=== PATIENT | female | born 1960 | race Caucasian/White ===

== ENCOUNTER 2018-03-17 06:53 | Inpatient (IN) | payer OTHER ==
[~2018-03-17] VITALS: Ht 170.2 cm; Wt 97.5 kg
--- NOTE | ~2018-03-17 | H ---
[address] [address] HISTORY AND PHYSICAL Name: VIRGINIA CASTANEDA Room: [address]#: [id number] Admission: 03/17/18 Attend Phys: Marquise Dixon DO Discharge: 03/19/18 Date of : 64 Report #: [id number] THIS REPORT FOR: //name// For History and Physical please refer to the handwritten note in the patient's medical record. By: [facility] GABINO /THERON
[~2018-03-17 06:53] MED LIST: LISINOPRIL10 MG PO; METFORMIN HCL500 MG PO; NABUMETONE 750750 M1 PO
[2018-03-17 07:24] LABS: HEMATOCRIT 45.9 % (37.0-47.0); HEMOGLOBIN 15.4 gm/dL (12.0-15.0); MCH 30.4 pg (26.0-34.0); MCHC 33.7 g/dL (28.0-37.0); MCV 90.2 fL (80.0-100.0); MPV 7.8 fl. (7.2-11.1); RBC 5.09 mil/uL (4.20-5.00); RDW-CV 12.9 % (10.5-14.5); WBC 7.8 thou/uL (4.0-11.0)
[2018-03-17 07:26] LABS: CALCIUM 8.7 mg/dL (8.5-10.1); POTASSIUM 3.7 mmol/L (3.5-5.1)
[2018-03-17 07:31] LABS: ALBUMIN 3.8 g/dL (3.4-5.0); TOTAL BILIRUBIN 1.3 mg/dL (<0.1-1.0); TOTAL PROTEIN 7.6 g/dL (6.4-8.2)
[2018-03-17 08:00] VITALS: BP 11/60
--- NOTE | 2018-03-17 11:09 | EKG ---
[place] [address] ELECTROCARDIOGRAM REPORT Name: VIRGINIA CASTANEDA Room: [place] [address] ADM IN .R.#: [id number] Admission: 03/17/18 Attend Phys: Marquise Dixon DO Discharge: Date of : 64 Report #: [id number] THIS REPORT FOR: //name// [facility] Test Date: 2018-03-17 Test Time: 07:38:28 Pat Name: VIRGINIA CASTANEDA Department: Room: [place] [address] Gender: F Transmitter Chief: : 1960 Requested By: Marquise Dixon Order Number: [id number] Reading MD: Stalin Arroyo Measurements Intervals [place] Rate: 63 P: 28 AK: 139 QRS: 53 QRSD: 85 T: 36 QT: 425 QTc: 436 Interpretive Statements Sinus rhythm No previous ECG available for comparison Electronically Signed On 03-17-2018 11:09:14 CDT by Stalin Arroyo [email or web address] <ELECTRONICALLY SIGNED> By: Stalin Arroyo MD, [facility] 03/17/18 1109 0738 0738 Stalin Arroyo MD, FACC /EPI
[2018-03-17 15:00] VITALS: BP 113/72
[2018-03-17 16:48] VITALS: BP 107/61
[2018-03-17 20:09] VITALS: BP 99/52
[2018-03-18 00:38] VITALS: BP 90/59
[2018-03-18 04:56] LABS: ABSOLUTE EOSINOPHILS 0.1 thou/uL (0.0-0.7); ABSOLUTE LYMPHOCYTES 1.6 thou/uL (0.8-5.3); ABSOLUTE MONOCYTES 0.9 thou/uL (0.0-1.2); ABSOLUTE NEUTROPHILS 6.4 thou/uL (1.6-8.1); BASOPHILS 0.3 %; EOSINOPHILS 1.6 %; HEMATOCRIT 37.7 % (37.0-47.0); LYMPHOCYTES 17.1 %; MCH 30.6 pg (26.0-34.0); MCHC 33.1 g/dL (28.0-37.0); MCV 92.4 fL (80.0-100.0); MONOCYTES 10.4 %; MPV 8.2 fl. (7.2-11.1); NUCLEATED RBCS 0 /100WBC; POLYS 70.6 %; RBC 4.07 mil/uL (4.20-5.00); RDW-CV 13.2 % (10.5-14.5); WBC 9.1 thou/uL (4.0-11.0)
[2018-03-18 04:57] VITALS: BP 80/48
[2018-03-18 05:40] LABS: HEMOGLOBIN 12.5 gm/dL (12.0-15.0); PLATELET COUNT* 231 thou/uL (150-400)
[2018-03-18 05:57] VITALS: BP 90/53
[2018-03-18 06:04] LABS: CREATININE 0.9 mg/dL (0.6-1.3); POTASSIUM 4.1 mmol/L (3.5-5.1)
[2018-03-18 07:50] VITALS: BP 108/57
[2018-03-18 16:00] VITALS: BP 97/64
[2018-03-18 20:40] VITALS: BP 99/64
[2018-03-19] VITALS: BP 102/50
[2018-03-19 04:00] VITALS: BP 113/76
[2018-03-19 07:30] VITALS: BP 111/73
[2018-03-19] MEDS ORDERED: NORCO 5-325 TA1 EACH PO (15:02)
[2018-03-19 15:06] VITALS: BP 111/73
[2018-03-19 19:39] VITALS: BP 111/73
--- NOTE | 2018-03-21 13:09 | PATH ---
[address] [address] PATHOLOGY RPT PROCEDURE Name: MONTSERRAT RICHARD Room: [address] IN M.R.#: [id number] Admission: 03/17/18 Date of : 64 Discharge: 03/19/18 Report #: [id number] Path Case #: [id number] L[facility] Accession Number: [id number] . 01 Material submitted: . SIGMOID COLON WITH DOUGHNUTS . 01 Clinician provided ICD-10: K57.32 . 01 Clinical history: . Diverticulitis of large intestine. . 02 Diagnosis: Sigmoid colon with donuts: - Segment of benign colon with marked diverticular disease including chronic diverticulitis and chronic and acute serositis. - Two benign colonic 'donuts'. (VIKTORIA:lisa; 03/20/2018) QMS/03/21/2018 . 02 Electronically signed: . Nilo Bustillo MD, Pathologist NPI- [id number] . 01 Gross description: . Received in formalin labeled "Montserrat Richard, sigmoid colon with donuts" is an unoriented segment of large bowel which measures 16.5 cm in length and 3.0 cm in diameter. The mucosal margins are closed with staple lines. There is an attached portion of mesenteric fat measuring 18.0 x 7.5 x 4.2 cm. The serosa is pink-eduardo and smooth with focal hemorrhagic areas. The specimen is opened to reveal pink-eduardo mucosa without masses or polyps identified. A strictured area is present, associated with the previously described serosal hemorrhage, which measures 5.0 cm in length and has a luminal diameter of 1.0 cm. The muscle wall in this area measures 0.5 cm in thickness. Upon sectioning, multiple diverticula are identified diffusely throughout the specimen, ranging from 0.5-1.3 cm in greatest dimension. No fecaliths or perforations are identified within the diverticula. Wood Pile Driver Operator sections of the specimen are submitted as follows: A1-A2 mucosal margins A3-A6 shared services representative diverticula ([facility]; 03/19/2018) . After initial microscopic examination, the specimen is re-examined. Also received within the specimen container are two anastomotic rings of light eduardo to light brown mucosa measuring 2.2 x 1.1 x 0.5 and 2.4 x 1.5 x 1.0 cm. Wood Pile Driver Operator sections [place] [address] PATHOLOGY RPT PROCEDURE Name: MONTSERRAT RICHARD Room: [address] IN [facility]#: [id number] Admission: 03/17/18 Date of : 64 Discharge: 03/19/18 Report #: [id number] Path Case #: [id number] cassette A7. (CAA; 03/20/2018) SYC/SYC . 02 Pathologist provided ICD-10: K57.32, K65.8 . 02 CPT . 665054 Specimen Comment: A courtesy copy of this report has been sent to Specimen Comment: [phone], . Specimen Comment: Report sent to / DR RODRIGUEZ Performed at: [address], [place], [place] [id number] MD Darrion Baeza MD Phone: [phone] Performed at: 02 [facility] [address], [place], [place] [id number] MD Nilo Bustillo MD Phone: [phone]
--- NOTE | 2018-03-26 10:40 | OP ---
[address] [address] OPERATIVE REPORT Name: VIRGINIA CASTANEDA Room: [address] IN M.R.#: [id number] Admission: 03/17/18 Attend Phys: Marquise Dixon DO Discharge: 03/19/18 Date of : 64 Report #: [id number] THIS REPORT FOR: //name// CC: Marquise Santamaria DO DATE OF SERVICE: 03/17/2018 REFERRING PHYSICIANS: Dr. Christel Santamaria and also Dr. Kevin Marti. PREOPERATIVE DIAGNOSIS: Recurrent sigmoid diverticulitis. POSTOPERATIVE DIAGNOSES: Recurrent sigmoid diverticulitis and large uterine fibroid tumors. PROCEDURE: Laparoscopic sigmoid colectomy with end-to-end colorectal anastomosis and takedown of the splenic flexure. SURGEON: Marquise Dixon DO LEHR OPERATOR: Roberto Quintanilla DO, PGY2, resident. SECOND EXHIBITS MANAGER: Darleen Cerda DO, PGY1, resident. ANESTHESIA: General endotracheal. ESTIMATED BLOOD LOSS: Less than 40 mL. COMPLICATIONS: None. INDICATIONS FOR PROCEDURE: This is a 58-year-old female who has had multiple bouts of diverticulitis including both inpatient and outpatient treatments. She underwent colonoscopy, which did show sigmoid diverticulitis and some narrowing was noted as well in the sigmoid region. DESCRIPTION OF PROCEDURE: After obtaining proper consents and discussing risks and complications with the patient, she was taken to the operating room, she was placed in the lithotomy position, administered general endotracheal anesthetic. She was then prepped and draped in the usual fashion. A Ribera catheter was placed. A timeout was performed. We confirmed the appropriate patient and procedure. Preoperative antibiotics had been given. SCDs were in place. All necessary equipment was within the operating room. We then made a midline supraumbilical skin incision with a #11 scalpel blade. This was carried down through the skin into the subcutaneous tissue [place] [address] OPERATIVE REPORT Name: TONYAVIRGINIA Veronica Room: [address]#: [id number] Admission: 03/17/18 Attend Phys: Marquise Dixon, Discharge: 03/19/18 Date of : 64 Report #: [id number] hemostasis. Once the fascia was encountered, it was incised along the midline, grasped and elevated with [facility] clamps and divided further. The peritoneum was then bluntly opened using a hemostat. A finger was placed inside the peritoneal cavity to assure there were no olvin-incisional adhesions. Next, 2-0 Vicryl sutures were placed in a erweyq-em-utuom fashion to secure the Monalisa trocar, which was then inserted and insufflation was begun. Once insufflation was complete, full visual inspection of the intraabdominal organs was performed. This immediately revealed a very large uterine fibroid. The sigmoid colon appeared to be thick walled and attached to the left pelvic sidewall. There were no other gross abnormalities. The liver appeared normal. The small bowel, which could be visualized appeared normal as well. We then inserted another 5 mm suprapubic trocar after placing the patient in Trendelenburg position. A 12 mm right lower quadrant trocar was placed and a 5 mm right upper quadrant trocar were placed. I was then able to take down the adhesions of the sigmoid colon along the left pelvic sidewall, all the way down to the peritoneal reflection using both blunt dissection as well as electrocautery. We then took down the white line of Toldt along the left pericolic gutter extending all the way up to the splenic flexure. I then began dissection on the medial aspect of the sigmoid colon. We elevated the colon. I identified the pedicle of the inferior mesenteric artery. We opened the mesentery around this and then used a LigaSure device to dissect out the inferior mesenteric artery and vein, which were divided using the LigaSure device. I was then able to open an avascular window in the mesentery. We were easily able to dissect distally until we were well below the area of concern and into an area that appeared to be normal bowel. I then also dissected more cephalad along the mesentery taking the mesentery until we were well above the area of inflammation and no evidence of any diverticula. At this point, we used an Endo-SATHISH 60 mm purple load on the Covidien stapler to divide the distal sigmoid colon at the peritoneal reflection. I did have to use another 45 mm staple load as well. We then wanted to assure that we had enough length to bring this down without any tension, so I took down the splenic flexure first using electrocautery along the splenocolic ligament and then using the LigaSure device as well. I also took down the gastrocolic omentum and entered the lesser sac, which allowed for easier dissection of the splenic flexure from the side of the transverse colon. Once we had enough length and we were well away from the colon during this dissection, we grasped the sigmoid colon at the staple line. A small laparotomy incision was made. We then inserted a wound protector and the colon was brought out and exteriorized. We identified the area that had been marked in the intraperitoneal portion of the procedure for the proximal resection margin. The LigaSure was used to dissect the mesentery all the way up to the colon in this area. We then used a TA 60 stapling device to divide the colon. Allis clamps were used to hold the colon open. Then, EEA sizers were inserted up to 31 mm. We elected to use a 31 mm EEA. The anvil was inserted into the proximal colon. The colon was then stapled. We then brought the spike out anterior through the tenia coli. We then dropped this back into the peritoneal cavity and reinsufflated the abdominal cavity. We bubble tested the rectal stump first with a rigid [address] [address] OPERATIVE REPORT Name: VIRGINIA CASTANEDA Room: [address] IN ..#: [id number] Admission: 03/17/18 Attend Phys: Marquise Dixon DO Discharge: 03/19/18 Date of : 64 Report #: [id number] sigmoidoscope. The EEA sizers were then inserted up to a 31 mm. The EEA stapler was then inserted and the spike opened anterior to the staple line. The anvil was then attached to the spike. The EEA was closed and fired. The anastomotic rings were checked and we found to have two good anastomotic rings. We then bubble tested the anastomosis as well using the rigid sigmoidoscope and found no evidence of any leak. I then placed a 15-[place] Octavio-Valero drain through the suprapubic incision. This was placed down next to the anastomosis. We assured that the small bowel was out from underneath the descending colon. The area was then copiously irrigated. We then removed the 12 mm right lower quadrant trocar and a PMI closure device was used to close the fascia with a 2-0 Vicryl suture. The remaining trocars were removed. The wound protector and all excess covering were removed. I then closed the supraumbilical fascia using a running #1 looped PDS suture. The subcutaneous tissues were injected with 0.5% Marcaine without epinephrine and then closed using 3-0 Vicryl suture. Skin incisions were all closed using 4-0 Monocryl subcuticular stitches. Sponge, needle and instrument counts were all correct at the end of the procedure. The patient tolerated the procedure well and was awakened in the operating room and transported to recovery room in stable condition. <ELECTRONICALLY SIGNED> By: Marquise Dixon DO 03/26/18 1040 1234 [id number] Dixon DO /nt
== END 2018-03-19 16:10 | disposition home or self-care (01) | DRG 331 ==
LOC: M.TBA 06:53 → M.PRE 09:04 → M.ORTHSURG 14:25
PROVIDERS: ADMIT Surgery
PROC: 0DTN4ZZ Resection of Sigmoid Colon, Percutaneous Endoscopic Approach (ICD-10-PCS; principal; 2018-03-17)
PROC: 0DBL4ZZ Excision of Transverse Colon, Percutaneous Endoscopic Approach (ICD-10-PCS; principal; 2018-03-17)
DX: K57.32 Diverticulitis of large intestine without perforation or abscess without bleeding (principal); D25.9 Leiomyoma of uterus, unspecified; I95.9 Hypotension, unspecified; E66.9 Obesity, unspecified; Z68.33 Body mass index [BMI] 33.0-33.9, adult

== ENCOUNTER → 2018-12-25 | Outpatient (CLI) | payer OTHER ==
[~2018-12-25] MED LIST changes: +NORCO 5-325 TA1 EACH PO
== END ==
LOC: M.MRI 13:48
DX: M47.813 Spondylosis without myelopathy or radiculopathy, cervicothoracic region (principal)

== ENCOUNTER → 2019-02-19 | Day surgery (SDC) | payer OTHER ==
[2019-02-19 10:38] LABS: HEMATOCRIT 45.8 % (37.0-47.0); HEMOGLOBIN 15.4 gm/dL (12.0-15.0); MCH 31.4 pg (26.0-34.0); MCHC 33.7 g/dL (28.0-37.0); MCV 93.2 fL (80.0-100.0); MPV 7.3 fl. (7.2-11.1); RBC 4.92 mil/uL (4.20-5.00); RDW-CV 12.9 % (10.5-14.5)
[2019-02-19 10:49] LABS: CALCIUM 9.2 mg/dL (8.5-10.1); CREATININE 0.9 mg/dL (0.6-1.3); POTASSIUM 4.4 mmol/L (3.5-5.1)
[2019-02-19 10:53] LABS: ALBUMIN 3.7 g/dL (3.4-5.0); TOTAL BILIRUBIN 0.7 mg/dL (<0.1-1.0); TOTAL PROTEIN 7.2 g/dL (6.4-8.2)
--- NOTE | 2019-02-19 17:18 | EKG ---
[place] [address] ELECTROCARDIOGRAM REPORT Name: VIRGINIA CASTANEDA Room: [facility]#: [id number] Admission: 02/19/19 Attend Phys: Han Ellis, Discharge: Date of : 64 Report #: [id number] THIS REPORT FOR: //name// [facility] Test Date: 2019-02-19 Test Time: 10:41:03 Pat Name: VIRGINIA CASTANEDA Department: Room: Gender: F Tape Recording Machine Operator: : 1960 Requested By: Han Ellis Order Number: [id number] Chela MD: Stalin Arroyo Measurements Intervals [place] Rate: 60 P: -20 CO: 144 QRS: 51 QRSD: 91 T: 38 QT: 421 QTc: 421 Interpretive Statements Sinus arrhythmia Low voltage, precordial leads Compared to ECG 03/17/2018 07:38:28 Low QRS voltage now present Electronically Signed On 02-19-2019 17:18:06 CDT by Stalin Arroyo [email or web address] <ELECTRONICALLY SIGNED> By: Stalin Arroyo MD, [facility] 02/19/19 1718 1041 1041 Stalin Arroyo MD, FACC /EPI
--- NOTE | 2019-02-21 16:49 | OP ---
[address] [address] OPERATIVE REPORT Name: VIRGINIA CASTANEDA Room: [facility]#: [id number] Admission: 02/19/19 Attend Phys: Han Ellis, Discharge: Date of : 64 Report #: [id number] THIS REPORT FOR: //name// CC: Christel Ellis DATE OF SERVICE: 02/19/2019 PREOPERATIVE DIAGNOSIS: Right carpal tunnel syndrome. POSTOPERATIVE DIAGNOSIS: Right carpal tunnel syndrome. OPERATION PERFORMED: Release of right carpal tunnel. SURGEON: Han Ellis DO. SALESFORCE DEVELOPER: Tyler Massey. SECOND SALESFORCE DEVELOPER: CHRIS Davila. ANESTHESIA: General. GROSS PATHOLOGY: There was evidence of a very thickened and hypertrophied transverse carpal ligament with impingement on the median nerve at the right wrist. This patient had exam consistent with carpal tunnel. EMG is consistent with carpal tunnel. She has been counseled regarding the surgery, possible complications and postop care. DESCRIPTION OF PROCEDURE: The patient was brought to the operating room where general anesthetic was administered. Preoperative antibiotics were given. A Hibiclens scrub and a ChloraPrep, prep were done to the right arm. The patient was draped in a sterile manner. A tourniquet is inflated to 200 mmHg in the right upper arm. An incision was made slightly ulnar to the thenar crease at its midportion stopping short of the flexion crease at the right wrist. It was carried down through the skin and subcuticular material by sharp dissection. By sharp and blunt dissection the transverse carpal ligament is identified. It was transected on the ulnar border of the median nerve distally and the remaining portion was transected proximally. Further inspection of the nerve in this region revealed no impingement. The tourniquet was deflated to 0. The nerve was noted to pink up nicely. The skin was closed with interrupted 4-0 nylon. The area was anesthetized with Marcaine 0.25% plain, approximately 8 [place] [address] OPERATIVE REPORT Name: VIRGINIA CASTANEDA Room: [facility].#: [id number] Admission: 02/19/19 Attend Phys: Han Ellis, Discharge: Date of : 64 Report #: [id number] Sterile dressings applied, dorsal splints applied. The patient was transferred to the recovery room. <ELECTRONICALLY SIGNED> By: Baudilio Herrmann DO 02/21/19 1649 1435 1523Mictiana Elils DO /nt
== END | disposition home or self-care (01) ==
LOC: M.SUR 07:47
PROVIDERS: Orthopaedic Surgery
DX: G56.01 Carpal tunnel syndrome, right upper limb (principal); I10 Essential (primary) hypertension; Z79.899 Other long term (current) drug therapy; Z87.19 Personal history of other diseases of the digestive system; Z98.890 Other specified postprocedural states